=== PATIENT | female | born 1995 | race African-American/Black ===

== ENCOUNTER 2019-02-21 17:08 | Emergency (ER) | payer MEDICAID ==
[~2019-02-21] VITALS: Ht 167.6 cm; Wt 69.4 kg
[2019-02-21] MEDS ORDERED: IV NORMAL SALINE 1000 ML BAG IV ONE (17:45)
[2019-02-21] MEDS ORDERED: ONDANSETRON 4 MG/2 ML VIAL IV ONE (17:45)
[2019-02-21 17:56] LABS: *BILIRUBIN,URIN NEGATIVE (NEGATIVE); *CLARITY,URINE SLIGHTLY CLOUDY (CLEAR); *COLOR,URINE YELLOW (YELLOW); *KETONES,URINE 1+ (NEGATIVE); *UROBILINOGEN,URINE 0.2 E.U./dl (NORMAL); LEUKOCYTE ESTERASE ,URINE NEGATIVE (NEGATIVE); NITRITE, URINE NEGATIVE (NEGATIVE); UGLUCOSE NEGATIVE (NEGATIVE)
[2019-02-21 17:57] LABS: *BLOOD, URINE TRACE INTACT (NEGATIVE); *URINE HCG, QUAL NEGATIVE (NEGATIVE)
[2019-02-21] MEDS ORDERED: ONDANSETRON 4 MG/2 ML VIAL ONE (17:57)
[2019-02-21 18:02] LABS: BACTERIA,URINE FEW /HPF (NONE SEEN); MUCUS,URINE FEW /LPF (0-FEW); SQUAMOUS EPITHELIAL CELL,UR MANY /HPF (NONE SEEN)
[2019-02-21 18:03] LABS: WBC,URINE 0-3 /HPF (0-3)
[2019-02-21 18:08] LABS: BASOPHILS % (AUTO) 0.3 % (0.0-2.0); EOSINOPHILS # (AUTO) 0.1 K/uL (0.0-0.7); EOSINOPHILS % (AUTO) 1.2 % (0.0-7.0); HEMATOCRIT 43.6 % (31.2-41.9); HEMOGLOBIN 14.7 g/dL (10.9-14.3); LYMPHOCYTES # (AUTO) 1.3 K/uL (20.0-40.0); LYMPHOCYTES % (AUTO) 12.8 % (20.5-51.5); MEAN CORPUSCULAR HEMOGLOBIN 27.1 uug (24.7-32.8); MEAN CORPUSCULAR HGB CONC 34 g/dL (32.3-35.6); MEAN CORPUSCULAR VOLUME 80.5 fL (75.5-95.3); MONOCYTES # (AUTO) 0.5 K/uL (2.0-10.0); MONOCYTES % (AUTO) 4.8 % (0.0-11.0); NEUTROPHILS # (AUTO) 8.4 K/uL (1.8-8.9); NEUTROPHILS % (AUTO) 80.9 % (38.5-71.5); PLATELET COUNT (AUTO) 231 K/uL (179-408); RED BLOOD CELL COUNT(AUTO) 5.41 MIL/uL (3.63-4.92); WHITE BLOOD COUNT (AUTO) 10.4 K/uL (3.8-11.8)
[2019-02-21 18:16] LABS: CREATININE 0.9 mg/dL (0.6-1.3); POTASSIUM 3.9 mmol/L (3.5-5.1)
[2019-02-21 18:28] LABS: BILIRUBIN,DIRECT 0.1 mg/dL (0.0-0.2); BILIRUBIN,TOTAL 0.4 mg/dL (0.2-1.0); TOTAL PROTEIN, SERUM 7.9 g/dL (6.4-8.2)
[2019-02-21] MEDS ORDERED: diphenhydrAMINE 50 MG/1 ML VIAL ONE (18:46)
[2019-02-21] MEDS ORDERED: HALOPERIDOL LACTATE 5 MG/1 ML VIAL ONE (18:46)
--- NOTE | 2019-02-21 18:55 | NUR ---
Pt able to tolorate po intake.
--- NOTE | 2019-02-21 19:02 | NUR ---
Patient is resting comfortably in bed with eyes closed, NAD noted. Report given to debbi LIN.
--- NOTE | 2019-02-21 19:20 | NUR ---
Patient states "I feel alot better now. Pain is gone."
--- NOTE | 2019-02-21 19:24 | NUR ---
Dr Monique into re eval patient
--- NOTE | 2019-02-21 19:36 | NUR ---
IV removed. Catheter intact and site benign. Pressure and 4x4 gauze applied to site. No bleeding noted.
[2019-02-21 19:39] VITALS: BP 118/79
--- NOTE | 2019-02-21 19:40 | NUR ---
Patient discharged to home in stable conditon. Written and verbal after care instructions given. Patient verbalizes understanding of instructions. walked out of ER with no distress noted.
== END 2019-02-21 19:40 | disposition home or self-care (01) ==
LOC: ER 17:08
DX: R11.2 Nausea with vomiting, unspecified (principal); R10.13 Epigastric pain; R42 Dizziness and giddiness
CPT/HCPCS: 36415; 80048; 80076; 81000; 81001; 83690; 84703; 85025; 96361; 96374; 99283; J2405; A4663; J1200; J1630; J7030

== ENCOUNTER 2019-04-28 09:47 | Emergency (ER) | payer MEDICAID ==
[~2019-04-28] VITALS: Ht 167.6 cm; Wt 68.0 kg
[2019-04-28] MEDS ORDERED: ONDANSETRON 4 MG/2 ML VIAL IV ONE (10:15)
[2019-04-28] MEDS ORDERED: KETOROLAC TROMETHAMINE 30 MG INJ ONE (10:15)
[2019-04-28] MEDS ORDERED: MORPHINE SULFATE 2 MG/1 ML DISP.SYRIN IV ONE (10:15)
[2019-04-28] MEDS ORDERED: MORPHINE SULFATE 2 MG/1 ML DISP.SYRIN ONE (10:15)
[2019-04-28] MEDS ORDERED: IV NORMAL SALINE 1000 ML BAG IV ONE (10:15)
[2019-04-28] MEDS ORDERED: KETOROLAC TROMETHAMINE 15 MG INJ IVP ONE (10:15)
[2019-04-28] MEDS ORDERED: ONDANSETRON 4 MG/2 ML VIAL ONE (10:15)
[2019-04-28 10:21] LABS: BASOPHILS % (AUTO) 0.5 % (0.0-2.0); EOSINOPHILS # (AUTO) 0.3 K/uL (0.0-0.7); EOSINOPHILS % (AUTO) 5.2 % (0.0-7.0); HEMATOCRIT 40.3 % (31.2-41.9); HEMOGLOBIN 13.6 g/dL (10.9-14.3); LYMPHOCYTES # (AUTO) 2.7 K/uL (20.0-40.0); LYMPHOCYTES % (AUTO) 45.3 % (20.5-51.5); MEAN CORPUSCULAR HEMOGLOBIN 27.2 uug (24.7-32.8); MEAN CORPUSCULAR HGB CONC 34 g/dL (32.3-35.6); MEAN CORPUSCULAR VOLUME 80.5 fL (75.5-95.3); MONOCYTES # (AUTO) 0.4 K/uL (2.0-10.0); MONOCYTES % (AUTO) 6.6 % (0.0-11.0); NEUTROPHILS # (AUTO) 2.5 K/uL (1.8-8.9); NEUTROPHILS % (AUTO) 42.4 % (38.5-71.5); PLATELET COUNT (AUTO) 204 K/uL (179-408); RED BLOOD CELL COUNT(AUTO) 5.01 MIL/uL (3.63-4.92)
[2019-04-28 10:26] LABS: CREATININE 0.9 mg/dL (0.6-1.3); POTASSIUM 3.9 mmol/L (3.5-5.1)
[2019-04-28 10:31] LABS: BILIRUBIN,DIRECT 0.1 mg/dL (0.0-0.2); BILIRUBIN,TOTAL 0.2 mg/dL (0.2-1.0); TOTAL PROTEIN, SERUM 6.9 g/dL (6.4-8.2)
[2019-04-28 11:40] LABS: *BILIRUBIN,URIN NEGATIVE (NEGATIVE); *CLARITY,URINE CLEAR (CLEAR); *COLOR,URINE YELLOW (YELLOW); *KETONES,URINE NEGATIVE (NEGATIVE); *UROBILINOGEN,URINE 0.2 E.U./dl (NORMAL); LEUKOCYTE ESTERASE ,URINE NEGATIVE (NEGATIVE); NITRITE, URINE NEGATIVE (NEGATIVE); PH,URINE 6.5 (5.0-8.0); UGLUCOSE NEGATIVE (NEGATIVE)
[2019-04-28 11:44] LABS: *BLOOD, URINE NEGATIVE (NEGATIVE)
[2019-04-28] MEDS ORDERED: LIDOCAINE 5% PATCH TD ONE ×2 (12:00→12:14)
--- NOTE | 2019-04-28 12:22 | NUR ---
Patient discharged to home in stable conditon. Written and verbal after care instructions given. Patient verbalizes understanding of instructions.pt walks i nsteady gait. pt accompanied by so. pt not driving. pt says feels better and ready rto go home.
[2019-04-28 12:23] VITALS: BP 121/79
== END 2019-04-28 12:28 | disposition home or self-care (01) ==
LOC: ER 09:47
DX: M54.9 Dorsalgia, unspecified (principal)
CPT/HCPCS: 36415; 76770; 80048; 80076; 81001; 84702; 85025; 96374; 96375; 99284; J1885; J2270; J2405; A4663; J7030

== ENCOUNTER 2019-05-10 11:03 | Emergency (ER) | payer MEDICAID ==
[~2019-05-10] VITALS: Ht 167.6 cm; Wt 67.1 kg
[2019-05-10] MEDS ORDERED: DEXAMETHASONE SOD PHOSPHATE 4 MG INJ IV ONE (11:45)
[2019-05-10] MEDS ORDERED: METOCLOPRAMIDE HCL 10 MG/2 ML VIAL IV ONE (11:45)
[2019-05-10] MEDS ORDERED: IV NS 1000 ML 1,000 ML IV ONE (11:45)
[2019-05-10] MEDS ORDERED: MORPHINE SULFATE 2 MG/1 ML DISP.SYRIN IV ONE (11:45)
[2019-05-10] MEDS ORDERED: KETOROLAC TROMETHAMINE 30 MG INJ IVP ONE (11:45)
--- NOTE | 2019-05-10 11:59 | NUR ---
PATIENT WAS SEEN BY MD FOR C/O HEADACHE AND NAUSEA.
[2019-05-10] MEDS ORDERED: DEXAMETHASONE SOD PHOSPHATE 10 MG INJ ONE (12:01)
[2019-05-10] MEDS ORDERED: METOCLOPRAMIDE HCL 10 MG/2 ML VIAL ONE (12:01)
[2019-05-10] MEDS ORDERED: KETOROLAC TROMETHAMINE 30 MG INJ ONE (12:01)
[2019-05-10] MEDS ORDERED: MORPHINE SULFATE 2 MG/1 ML DISP.SYRIN ONE (12:02)
--- NOTE | 2019-05-10 13:03 | NUR ---
STATES PAIN HAS DIMINISHED. URINE SENT TO LAB.
[2019-05-10 13:22] LABS: *URINE HCG, QUAL NEGATIVE (NEGATIVE)
[2019-05-10 13:47] VITALS: BP 107/71
--- NOTE | 2019-05-10 13:47 | NUR ---
Patient discharged to home in stable conditon. Written and verbal after care instructions given. Patient verbalizes understanding of instructions.
== END 2019-05-10 13:49 | disposition home or self-care (01) ==
LOC: ER 11:03
DX: G43.909 Migraine, unspecified, not intractable, without status migrainosus (principal); J06.9 Acute upper respiratory infection, unspecified; R11.10 Vomiting, unspecified
CPT/HCPCS: 71046; 84703; 96374; 96375; 99284; J1100; J1885; J2270; J2765; A4663; J7030

== ENCOUNTER 2019-05-28 18:13 | Emergency (ER) | payer MEDICAID ==
[~2019-05-28] VITALS: Ht 167.6 cm; Wt 67.6 kg
[2019-05-28 19:00] LABS: *BILIRUBIN,URIN NEGATIVE (NEGATIVE); *BLOOD, URINE 2+ (NEGATIVE); *COLOR,URINE YELLOW (YELLOW); *KETONES,URINE NEGATIVE (NEGATIVE); *UROBILINOGEN,URINE 0.2 E.U./dl (NORMAL); LEUKOCYTE ESTERASE ,URINE NEGATIVE (NEGATIVE); NITRITE, URINE NEGATIVE (NEGATIVE); PH,URINE 5.5 (5.0-8.0); UGLUCOSE NEGATIVE (NEGATIVE)
[2019-05-28 19:04] LABS: *URINE HCG, QUAL NEGATIVE (NEGATIVE)
[2019-05-28 19:06] LABS: *CLARITY,URINE SLIGHTLY HAZY (CLEAR)
[2019-05-28 19:07] LABS: BACTERIA,URINE FEW /HPF (NONE SEEN); MUCUS,URINE FEW /LPF (0-FEW); SQUAMOUS EPITHELIAL CELL,UR MODERATE /HPF (NONE SEEN); WBC,URINE 0-3 /HPF (0-3)
[2019-05-28] MEDS ORDERED: HYDROMORPHONE 1 MG/1 ML DISP.SYRIN IV ONE (19:15)
[2019-05-28] MEDS ORDERED: IV NORMAL SALINE 1000 ML BAG IV ONE (19:15)
[2019-05-28] MEDS ORDERED: ONDANSETRON 4 MG/2 ML VIAL IV ONE (19:15)
[2019-05-28] MEDS ORDERED: ONDANSETRON 4 MG/2 ML VIAL ONE (19:27)
[2019-05-28] MEDS ORDERED: HYDROMORPHONE 1 MG/1 ML DISP.SYRIN ONE (19:27)
[2019-05-28 19:29] LABS: BASOPHILS % (AUTO) 0.4 % (0.0-2.0); EOSINOPHILS # (AUTO) 0.3 K/uL (0.0-0.7); HEMOGLOBIN 13.1 g/dL (10.9-14.3); LYMPHOCYTES # (AUTO) 1.9 K/uL (20.0-40.0); LYMPHOCYTES % (AUTO) 42.2 % (20.5-51.5); MEAN CORPUSCULAR HEMOGLOBIN 26.8 uug (24.7-32.8); MEAN CORPUSCULAR HGB CONC 34 g/dL (32.3-35.6); MEAN CORPUSCULAR VOLUME 79.8 fL (75.5-95.3); MONOCYTES # (AUTO) 0.5 K/uL (2.0-10.0); MONOCYTES % (AUTO) 11.7 % (0.0-11.0); NEUTROPHILS # (AUTO) 1.8 K/uL (1.8-8.9); NEUTROPHILS % (AUTO) 39.7 % (38.5-71.5); PLATELET COUNT (AUTO) 203 K/uL (179-408); RED BLOOD CELL COUNT(AUTO) 4.89 MIL/uL (3.63-4.92); WHITE BLOOD COUNT (AUTO) 4.4 K/uL (3.8-11.8)
[2019-05-28 19:36] LABS: CREATININE 0.8 mg/dL (0.6-1.3); POTASSIUM 4.3 mmol/L (3.5-5.1)
[2019-05-28 19:41] LABS: BILIRUBIN,DIRECT 0.1 mg/dL (0.0-0.2); BILIRUBIN,TOTAL 0.2 mg/dL (0.2-1.0)
[2019-05-28 20:44] VITALS: BP 109/72
== END 2019-05-28 20:45 | disposition home or self-care (01) ==
LOC: ER 18:13
DX: R11.2 Nausea with vomiting, unspecified (principal); R19.7 Diarrhea, unspecified; R10.9 Unspecified abdominal pain
CPT/HCPCS: 36415; 80048; 80076; 81000; 81001; 83690; 84702; 84703; 85025; 96374; 96375; 99283; J1170; J2405; A4663; J7030

== ENCOUNTER 2019-07-26 09:23 | Emergency (ER) | payer MEDICAID ==
[~2019-07-26] VITALS: Ht 167.6 cm; Wt 61.2 kg
[2019-07-26] MEDS ORDERED: AZITHROMYCIN 250 MG TABLET ONE (09:52)
[2019-07-26] MEDS ORDERED: AZITHROMYCIN 250 MG TABLET PO ONE (10:00)
== END 2019-07-26 09:57 | disposition home or self-care (01) ==
LOC: ER 09:23
DX: J06.9 Acute upper respiratory infection, unspecified (principal); M79.10 Myalgia, unspecified site
CPT/HCPCS: A4663; Q0144

== ENCOUNTER 2019-08-09 11:48 | Emergency (ER) | payer MEDICAID ==
[~2019-08-09] VITALS: Ht 167.6 cm; Wt 63.5 kg
--- NOTE | 2019-08-09 12:18 | NUR ---
PATIENT WAS SEEN BY MD. WOUND CARE BY DR KIM. STERILE 4 X 4 APPLIED OVER WOUND. DC, RX (INCLUDING PRECAUTIONS) AND FOLLOW UP INSTRUCTIONS GIVEN AND EXPLAINED TO PATIENT WHO STATES SHE UNDERSTANDS ALL INSTRUCTIONS. PT TO COME BACK IN 2 DAYS
[2019-08-09] MEDS: LIDOCAINE HCL 1% 20 ML VIAL TP ONE (12:20)
== END 2019-08-09 12:21 | disposition home or self-care (01) ==
LOC: ER 11:48
DX: L02.11 Cutaneous abscess of neck (principal)
CPT/HCPCS: 10060; 99283; J3490; A4663

== ENCOUNTER 2019-08-11 17:42 | Emergency (ER) | payer MEDICAID ==
[~2019-08-11] VITALS: Ht 167.6 cm; Wt 63.5 kg
[2019-08-11] MEDS ORDERED: NEOMY/BACITRA/POLYMYXIN B OINT UD PACKET TP ONE ×2 (18:03→18:15)
--- NOTE | 2019-08-11 18:03 | NUR ---
Dressing applied to neck per MD instruction. Patient tolorated well
--- NOTE | 2019-08-11 18:10 | NUR ---
Patient discharged to home in stable conditon. Written and verbal after care instructions given. Patient verbalizes understanding of instructions.
== END 2019-08-11 18:17 | disposition home or self-care (01) ==
LOC: ER 17:42
DX: Z48.01 Encounter for change or removal of surgical wound dressing (principal)
CPT/HCPCS: A4663

== ENCOUNTER 2019-09-11 20:05 | Emergency (ER) | payer MEDICAID ==
[~2019-09-11] VITALS: Ht 167.6 cm; Wt 65.8 kg
[2019-09-11 20:53] LABS: *BILIRUBIN,URIN NEGATIVE (NEGATIVE); *BLOOD, URINE 1+ (NEGATIVE); *CLARITY,URINE CLEAR (CLEAR); *COLOR,URINE YELLOW (YELLOW); *KETONES,URINE NEGATIVE (NEGATIVE); *UROBILINOGEN,URINE 0.2 E.U./dl (NORMAL); LEUKOCYTE ESTERASE ,URINE 1+ (NEGATIVE); NITRITE, URINE NEGATIVE (NEGATIVE); PH,URINE 7.5 (5.0-8.0); UGLUCOSE NEGATIVE (NEGATIVE)
[2019-09-11 21:04] LABS: *URINE HCG, QUAL NEGATIVE (NEGATIVE); BACTERIA,URINE NONE SEEN /HPF (NONE SEEN); MUCUS,URINE MODERATE /LPF (0-FEW); SQUAMOUS EPITHELIAL CELL,UR MODERATE /HPF (NONE SEEN)
[2019-09-11] MEDS ORDERED: HYDROCODONE/APAP 10-325 MG TABLET ONE (21:26)
[2019-09-11] MEDS ORDERED: FLUCONAZOLE 100 MG TABLET ONE (21:26)
--- NOTE | 2019-09-11 21:28 | NUR ---
Patient discharged to home in stable conditon. Written and verbal after care instructions given. Patient verbalizes understanding of instructions. Pt ambulated out of ER with steady gait, no acute signs of distress, VSS, all belongings taken.
[2019-09-11 21:29] VITALS: BP 113/79
[2019-09-11] MEDS ORDERED: HYDROCODONE/APAP 10-325 MG TABLET PO ONE (21:30)
[2019-09-11] MEDS ORDERED: FLUCONAZOLE 100 MG TABLET PO ONE (21:30)
== END 2019-09-11 21:29 | disposition home or self-care (01) ==
LOC: ER 20:05
DX: N39.0 Urinary tract infection, site not specified (principal); B37.3 Candidiasis of vulva and vagina
CPT/HCPCS: 84703; 87086; A4663

== ENCOUNTER 2020-01-02 09:59 | Emergency (ER) | payer MEDICAID ==
[~2020-01-02] VITALS: Ht 167.6 cm; Wt 65.8 kg
--- NOTE | 2020-01-02 10:05 | NUR ---
PATIENT WAS MSE BY DR SERRANO IN ROOM 04B. PATIENT A & O X4.
--- NOTE | 2020-01-02 10:17 | NUR ---
Patient discharged to home in stable condition. Written and verbal after care instructions given. Patient verbalizes understanding of instructions. Stressed follow up or return to ER for worsening s/s.
== END 2020-01-02 10:19 | disposition home or self-care (01) ==
LOC: ER 10:04
DX: M54.5 Low back pain (principal)
CPT/HCPCS: A4663